=== PATIENT | male | born 1955 | race Caucasian/White ===

== ENCOUNTER → 2018-06-05 07:25 | Outpatient (CLI) | payer MEDICARE, BC ==
[~2018-06-05] VITALS: Ht 177.8 cm; Wt 136.4 kg
--- NOTE | ~2018-06-05 | OP ---
PATIENT NAME: GORDON RANKIN MEDICAL RECORD: [id number] :51 LOCATION:D.CAT ADMISSION DATE: SURGEON: LOGAN SALAS MD DATE OF OPERATION: 06/05/2018 PROCEDURES: 1. PTCA and stent, ramus intermedius. 2. PTCA and stent, LAD. 3. Left heart catheterization. 4. Selective coronary angiography. 5. Left ventriculogram. INDICATIONS: Angina and coronary artery disease. PROCEDURE IN DETAIL: After informed consent was obtained with detailed description of risks and benefits as well as alternative therapies, the patient elected to proceed with angiogram and angioplasty. The right femoral area was prepped and draped in normal sterile fashion. Right femoral artery was cannulated via modified Seldinger technique with placement of 6-American sheath. All catheters were exchanged through this sheath. FINDINGS: Left ventriculogram performed in standard 30-degree POWERS view reveals good cardiac wall motion throughout all segments. Overall ejection fraction estimated at 60%. SELECTIVE CORONARY ANGIOGRAPHY: 1. Left main is with no significant angiographic disease. 2. Left anterior descending has 80% stenosis proximally. 3. Left circumflex starts with a large ramus intermedius that has 95% stenosis. 4. Right coronary is totally occluded. Distal right coronary fills via spxr-lo-fzekx and ghfrv-ww-xqntk collaterals. PTCA AND STENT OF THE LAD AND CIRCUMFLEX RAMUS INTERMEDIUS: The ramus was addressed with a 2.75 x 12-mm Cristóbal and the LAD with a 3.0 x 34-mm [place]. Result was 0% residual stenosis. OVERALL IMPRESSION: Successful PTCA and stent of LAD and circumflex, going from 80% to 95% initial stenoses to 0% residual. TRANSINT:[id number] Voice Confirmation ID: [id number] DOCUMENT ID: [id number] LOGAN SALAS MD at 1925 CC: [id number] DICTATION DATE: 06/05/18 1045 COMMUNICATIONS ADMINISTRATOR: 06/05/18 1058 DEP CLI 06/05/18 [facility] [address] [place] [address]
--- NOTE | ~2018-06-05 | HEMODYNAMI ---
PATIENT:GORDON RANKIN MEDICAL RECORD: [id number] : 51 LOCATION:[facility] ADMISSION DATE: 06/05/18 Generatedon:06/05/201810:46 Patient name: GORDON RANKIN Patient #: [id number] SSN: DO B: 1955 Date of study: 06/05/2018 Page: Of Hemodynamic Procedure Report Patient Data Patient Demographics Procedure consent was obtained First Name: GORDON Gender: Male Last Name: CHUCHO : 1955 Patient #: [id number] Age: 63 year(s) Race: Unknown Additional ID: [id number] Contact details Address: [address] [place] [address] State: [place] City: [place] Zip code: [address] Past Medical History Allergies: No known allergies Admission Admission Data Admission Date: 06/05/2018 Admission Time: 7:25 Admit Source: Other Procedure Procedure Types Cath Procedure Diagnostic Procedure LHC LHC w/Coronaries Sedation Charges Moderate Sedation up to 15 minutes PCI Procedure Coronary Stent Coronary Stent Initial x2 Procedure Description Procedure Date Procedure Date: 06/05/2018 Procedure Start Time: 10:16 Procedure End Time: 10:45 Procedure Staff Name Function Clemente Lou MD Performing Physician Sendy Ruiz RT Scrub Mohit Woo RN Nurse Mattie Napier RT Monitor Procedure Data Cath Procedure Fluoroscopy Diagnostic fluoroscopy Total fluoroscopy Time: 8.1 time: 8.1 min min Diagnostic fluoroscopy Total fluoroscopy dose: dose: 2133 mGy 2133 mGy Contrast Material Contrast Material Type Amount (ml) Isovue 300 159 Entry Location Entry Primary Successful Side Size Upsize Upsize Entry Closure Royal ccessful Closure Location (Fr) 1 (Fr) 2 (Fr) Remarks Device Remarks Radial Right 6 Fr Mechanical artery Short Compression Femoral Right 5 Fr 6 Fr artery Short Estimated blood loss: 10 ml Diagnostic catheters Device Type Used For End Catheter Placement DIAGNOSTIC [place] 110cm 5 LV Angiography Fr catheter ([id number]) MULTIPACK Pigtail 5 Fr LV Angiography catheter MULTIPACK JL 4.0 5Fr Left Coronary catheter Angiography MULTIPACK 3DRC 5Fr Right Coronary catheter Angiography Procedure Complications No complications Procedure Medications Medication Administration Route Dosage 0.9% NaCl I.V. 100 ml/hr Oxygen etCO2 Nasal cannula 2 l/min Heparin Flush Bag added to field 2 bags (1000units/500ml NS) Lidocaine 2% added to field 20 Radial Cocktail added to field 1 syringe (Verapomil 2mg/Nitro 400mcg/Heparin 1500units) Versed I.V. 1 mg Fentanyl I.V. 50 mcg Versed I.V. 1 mg Fentanyl I.V. 50 mcg Radial Cocktail I.A. 1 syringe (Verapomil 2mg/Nitro 400mcg/Heparin 1500units) Versed I.V. 1 mg Heparin Bolus I.V. 4000 units Integrilin (Bolus I.V. 11.3 ml 2mg/ml) Integrilin (Bolus wasted 8.7 ml 2mg/ml) Plavix P.O. 600 mg Hemodynamics Rest Heart Rate: 54 (bpm) Snapshots Pre Cath Intra NCS Post Cath Vital Signs Time Heart Resp SPO2 etCO2 NIBP (mmHg) Rhythm Pain Sedation Rate (ipm) (%) (mmHg) Status Level (bpm) 9:59:22 52 13 96 37 135/73(118) NSR 0 (11) 10(A) , No pain 10:03:38 57 11 94 17.3 127/80(96) NSR 0 (11) 10(A) , No pain 10:07:56 51 12 97 12.8 124/67(96) NSR 0 (11) 10(A) , No pain 10:12:10 50 13 96 0 124/74(92) NSR 0 (11) 10(A) , No pain 10:16:20 65 13 97 25.7 140/86(118) NSR 0 (11) 10(A) , No pain 10:20:36 59 14 94 30.2 114/69(81) NSR 0 (11) 10(A) , No pain 10:24:50 52 12 96 38.5 112/68(82) NSR 0 (11) 9(A) , No pain 10:29:04 52 12 97 34.7 128/63(102) NSR 0 (11) 9(A) , No pain 10:33:18 59 13 92 33.2 120/73(94) NSR 0 (11) 9(A) , No pain 10:38:17 48 13 97 40 127/76(104) NSR 0 (11) 10(A) , No pain 10:42:31 48 12 97 38.5 124/79(103) NSR 0 (11) 10(A) , No pain Medications Time Medication Route Dose Verified Delivered Reason Not es Effectiveness by by 9:56:39 0.9% NaCl I.V. 100 Mohit Mohit Per physician ml/hr Amna Woo RN RN 9:56:51 Oxygen etCO2 2 l/min Mohit Mohit Per physician Nasal Amna Woo cannula RN RN 9:57:01 Heparin Flush added 2 bags Mohit Mohit used for Bag to Lorigan mAna procedure (1000units/500ml field RN RN NS) 9:57:14 Lidocaine 2% added 20ml Mohit Mohit for local to vial Lorigan Lorigan anesthetic RN RN 9:57:29 Radial Cocktail added 1 Mohit Mohit used for (Verapomil to syringe Lorigan Amna procedure 2mg/Nitro field RN RN 400mcg/Heparin 1500units) 10:13:20 Versed I.V. 1 mg Mohit Mohit for sedation Lorrusty Woo RN RN 10:13:28 Fentanyl I.V. 50 mcg Mohit Mohit for sedation Amna Woo RN RN 10:17:26 Versed I.V. 1 mg Mohit Mohit for sedation Amna Woo RN RN 10:17:32 Fentanyl I.V. 50 mcg Mohit Mohit for sedation Amna Woo RN RN 10:18:33 Radial Cocktail I.A. 1 Mohit Clemente for (Verapomil syringe Amna Lou MD vasodilation 2mg/Nitro RN 400mcg/Heparin 1500units) 10:18:42 Versed I.V. 1 mg Mohit Mohit for sedation Amna Woo RN RN 10:30:30 Heparin Bolus I.V. 4000 Mohit Mohit for units Lorigan Lorrusty anticoagulation RN RN 10:30:47 Integrilin I.V. 11.3 ml Mohit Mohit for (Bolus 2mg/ml) Lorrusty Woo antiplatelet RN RN therapy 10:31:05 Integrilin wasted 8.7 ml Mohit Mohit to sharp's (Bolus 2mg/ml) Lorigan Lorigan RN RN 10:42:55 Plavix P.O. 600 mg Mohit Rueda for Amna Woo antiplatelet RN RN therapy Procedure Log Time Note 9:42:56 Informed consent obtained and on chart 9:43:00 Admit Source: Other 9:43:20 Diagnostic Cath status Elective 9:43:21 Mohit Woo RN sent for patient. Start room use. 9:43:22 Time tracking: Regular hours (M-F 7:00 - 5:00) 9:43:26 Plan of Care:Hemodynamics will remain stable., Cardiac rhythm will remain stable., Comfort level will be maintained., Respiratory function will remain adequate., Patient/ family verbilizes understanding of procedure., Procedure tolerated without complication., Recovers from procedure without complications.. 9:47:46 Patient received from Pre/Post Procedure Room to CCL 2 Alert and oriented. Tansferred to table in Supine position. 9:47:47 Warm blankets applied, and ruy hugger turned on for patient comfort. 9:47:48 Correct patient and procedure confirmed by team. 9:47:48 ECG and BP/O2 sat monitors applied to patient. 9:47:50 Full Disclosure recording started 9:56:39 0.9% NaCl 100 ml/hr I.V. was administered by Mohit Woo RN; Per physician; 9:56:51 Oxygen 2 l/min etCO2 Nasal cannula was administered by Mohit Woo RN; Per physician; 9:57:01 Heparin Flush Bag (1000units/500ml NS) 2 bags added to field was administered by Mohit Woo RN; used for procedure; 9:57:14 Lidocaine 2% 20ml vial added to field was administered by Mohit Woo RN; for local anesthetic; 9:57:29 Radial Cocktail (Verapomil 2mg/Nitro 400mcg/Heparin 1500units) 1 syringe added to field was administered by Mohit Woo RN; used for procedure; 9:58:14 Vital chart was started 9:58:24 Rhythm: sinus rhythm 9:58:40 H&P Date Dictated: 06/05/2018 New H&P dictated by physician.. 9:58:41 Pre-procedure instructions explained to patient. 9:58:42 Pre-op teaching completed and patient verbalized understanding. 9:58:44 Family in patients room. 9:58:46 Patient NPO since Midnight. 9:58:52 Patient allergic to No known allergies 9:58:59 Is the patient allergic to Iodine/contrast media? No. 9:59:49 Previous problem with sedation/anesthesia? No ? 9:59:50 Snore? Yes 9:59:51 Sleep apnea? Yes 9:59:52 Deviated septum? No 9:59:52 Opens mouth fully? Yes 9:59:53 Sticks out tongue? Yes 9:59:54 Airway obstruction? No ? 9:59:56 Dentures? No ? 9:59:59 Pre procedure: right dorsailis pedis pulse 2+ Normal; easily identifiable; not easily obliterated 10:00:01 Modified Kenji's test Ulnar < 7 seconds 10:00:03 Patient pain scale 0/10 ?. 10:00:10 IV patent on arrival in left forearm with 0.9% NaCl at KVO. 10:00:13 Lab results completed and on chart. 10:00:18 Right Radial & Right Groin area was prepped with chlora-prep and draped in sterile fashion 10:00:19 Alarms reviewed by R. N. 10:00:19 Sharps counted by scrub and verified by R.N. 10:00:25 Use device set Radial Dx or PCI 10:00:26 ACIST Syringe (90560) opened to sterile field. 10:00:26 Medline Cath Pack ([id number]) opened to sterile field. 10:00:27 Bag Decanter (2002S) opened to sterile field. 10:00:27 DIAGNOSTIC WIRE .035 260cm J wire (170170) opened to sterile field. 10:00:28 ACIST Hand Control (71786) opened to sterile field. 10:00:28 ACIST Manifold (74244) opened to sterile field. 10:00:29 Tegaderm 4 x 4 (1626W) opened to sterile field. 10:00:29 MBrace Wrist Support ([id number]) opened to sterile field. 10:00:44 SHEATH 6FR Slender ([id number]) opened to sterile field. 10:04:29 Baseline sample Acquired. 10:06:40 Patient diabetic? No. 10:06:43 Is patient on blood thinner?No 10:09:30 Zero performed for pressure channel P1 10:09:55 Physician paged 10:12:49 Final Timeout: patient, procedure, and site verified with staff and physician. All members of the team are in agreement. 10:12:52 Right Radial site verified by team. 10:12:54 Physical assessment completed. ASA score P 2 - A patient with mild systemic disease as per Clemente Lou MD. 10:12:57 Sedation plan: IV Moderate Sedation Medication:Versed, Fentanyl 10:13:20 Versed 1 mg I.V. was administered by Mohit Woo RN; for sedation; 10:13:28 Fentanyl 50 mcg I.V. was administered by Mohit Woo RN; for sedation; 10:16:01 Procedure started. 10:16:38 Local anesthetic to right radial artery with Lidocaine 2% by Clemente Lou MD.INITIAL ACCESS ONLY 10:17:07 A 6 Fr Short sheath was inserted into the Right Radial artery 10:17:26 Versed 1 mg I.V. was administered by Mohit Woo RN; for sedation; 10:17:32 Fentanyl 50 mcg I.V. was administered by Mohit Woo RN; for sedation; 10:18:13 A DIAGNOSTIC [place] 110cm 5 Fr catheter (408093) was advanced over the wire and used for LV Angiography. REMOVED, UNABLE TO ADVANCE PAST SUBCLAVIAN 10:18:33 Radial Cocktail (Verapomil 2mg/Nitro 400mcg/Heparin 1500units) 1 syringe I.A. was administered by Clemente Lou MD; for vasodilation; 10:18:42 Versed 1 mg I.V. was administered by Mohit Woo RN; for sedation; 10:20:12 Local anesthetic to right femoral artery with Lidocaine 2% by Clemente Lou MD.ADDITIONAL ACCESS 10:20:23 A 5 Fr sheath was inserted into the Right Femoral artery 10:20:40 SHEATH 5FR [place] (PPX050) opened to sterile field. 10:20:48 Use device set Multipack Set 10:20:54 DIAGNOSTIC Multipack 5Fr catheter set (PM6378) opened to sterile field. 10:22:00 A MULTIPACK Pigtail 5 Fr catheter was advanced over the wire and used for LV Angiography. 10:22:17 LV gram done using POWERS 10:22:20 Injector settings: Ml/sec: 10, Volume: 20, 10:22:25 EF : 55 % 10:22:29 Catheter removed. 10:22:56 A MULTIPACK JL 4.0 5Fr catheter was advanced over the wire and used for Left Coronary Angiography. 10:25:16 Catheter removed. 10:26:12 A MULTIPACK 3DRC 5Fr catheter was advanced over the wire and used for Right Coronary Angiography. 10:26:25 Catheter removed. 10:26:41 Use device set [facility] PCI 10:26:43 SHEATH 6FR [place] (RDG142) opened to sterile field. 10:26:49 INFLATOR Merit BasixCompak (GO5082) opened to sterile field. 10:26:53 CHOICE PT Extra Support 182cm wire ([id number]) opened to sterile field. 10:28:12 GUIDE 6FR XBLAD 4.0 catheter (93669160) opened to sterile field. 10:28:53 Sheath upsized to a 6 Fr Short. 10:29:08 6 Fr XBLAD 4.0 guide catheter was inserted over the wire 10:30:01 CHOICE PT ES wire advanced. 10:30:30 Heparin Bolus 4000 units I.V. was administered by Mohit Woo RN; for anticoagulation; 10:30:47 Integrilin (Bolus 2mg/ml) 11.3 ml I.V. was administered by Mohit Woo RN; for antiplatelet therapy; 10:31:05 Integrilin (Bolus 2mg/ml) 8.7 ml wasted was administered by Mohit Woo RN; to sharp's; 10:32:41 Wire advanced across lesion. 10:34:38 Place stent Inflation Number: 1 A MARGO RX 2.75 x 12 stent ([id number]) was prepped and advanced across the Ramus. The stent was deployed at 17 NIA for 0:10 (min:sec). 10:34:55 Wire redirected to LAD. 10:35:10 Wire removed. damaged. 10:35:19 Stent catheter was removed intact over wire. 10:35:32 GRAPHIX 182cm guide wire ([id number]) opened to sterile field. 10:35:59 GRAPHIX wire advanced. 10:39:08 Place stent Inflation Number: 1 A MARGO RX 3.0 x 34 stent ([id number]) was prepped and advanced across the Mid LAD. The stent was deployed at 17 NIA for 0:02 (min:sec). 10:39:40 Inflation number: 2 The stent balloon was then re-inflated across the Mid LAD to 15 NIA for 0:06 (min:sec). 10:40:14 Stent catheter was removed intact over wire. 10:40:15 Wire removed. 10:40:15 Guide catheter removed. 10:40:26 Procedure ended.(Physican Out) 10:40:35 Fluoroscopy time 08.10 minutes. 10:40:40 Flurop Dose total: 2133 10:40:40 Fluoroscopy dose: 2133 mGy 10:40:44 Contrast amount:Isovue 300 159ml. 10:40:45 Sharps counted by scrub and verified by R.N. 10:40:47 Insertion/operative site no bleeding no hematoma. 10:40:50 Post-op/insertion site Right Femoral artery dressed using a 4 x 4 and Tegaderm. 10:41:19 Post right femoral artery:stable, clean and dry 10:41:20 Post Procedure Pulses reassessed and unchanged 10:41:24 Post-procedure physical assessment completed. ASA score P 2 - A patient with mild systemic disease as per Clemente Lou MD. 10:41:26 Post procedure rhythm: unchanged. 10:41:28 Estimated blood loss: 10 ml 10:41:29 Post procedure instruction explained to patient.Patient verbalizes understanding. 10:41:29 Patient needs reinforcement of post procedure teaching. 10:41:38 Procedure Complication : No complications 10:41:57 Procedure type changed to Cath procedure, Diagnostic procedure, LHC, LHC w/Coronaries, Sedation Charges, Moderate Sedation up to 15 minutes, PCI procedure, Coronary Stent, Coronary Stent Initial x2 10:42:30 See physician's report for complete and final results. 10:42:40 TR BAND Large (IXH86OOL) opened to sterile field. 10:42:43 EXOSEAL 6Fr (EX600) opened to sterile field. 10:42:55 Plavix 600 mg P.O. was administered by Mohit Woo RN; for antiplatelet therapy; 10:42:55 Tegaderm 4 x 4 (1626W) opened to sterile field. 10:43:08 Sheath removed intact; hemostasis achieved with Mechanical Compression to the Right Radial artery. 10:43:12 Insertion/operative site no bleeding no hematoma. 10:43:19 Post right radial artery:stable, clean and dry 10:45:34 Procedure and supply charges have been captured, reviewed, submitted and are correct. 10:45:41 Vital chart was stopped 10:45:43 Report given to Pre/Post Procedure Room. 10:45:46 Patient transfered to Pre/Post Procedure Room with Stretcher. 10:45:56 Procedure ended. 10:45:56 Full Disclosure recording stopped 10:46:00 End room use (Document Last) Intervention Summary Intervention Notes Time ActionType Lesion and Equipment Used Action# Pressure Duration Attributes 10:34:38 Place stent Ramus MARGO RX 2.75 x 1 17 00:10 12 stent ([id number]) 10:39:08 Place stent Mid LAD MARGO RX 3.0 x 1 17 00:03 34 stent ([id number]) 10:39:40 Reinflate Mid LAD MARGO RX 3.0 x 2 15 00:06 stent 34 stent balloon ([id number]) Device Usage Item Name Manufacture Quantity Catalog Number Hospital Part Current M inimal Lot# / Charge Number Stock Stock Serial# Code ACIST Syringe Acist 1 95097 476185 835728 004022 2 0 (00557) Medical Systems Inc Medline Cath Medline 1 [id number] 988003 60272 352924 5 Pack ([id number]) Bag Decanter Microtek 1 2001S 242621 46496 690477 5 (2001S) Medical Inc. DIAGNOSTIC St [place] 1 638097 605507 865654 791836 3 0 WIRE .035 260cm J wire (130152) ACIST Hand Acist 1 13938 851143 853213 666046 5 Control Medical (70168) Systems Inc ACIST Manifold Acist 1 35832 162660 686904 173677 5 (69143) Medical Systems Inc Tegaderm 4 x 4 3M 2 1626W 561156 042003 025670 5 (1626W) MBrace Wrist Advanced 1 140-0250-00 334255 42743 051158 5 Support Vascular ([id number]) Dynamics SHEATH 6FR Terumo 1 [id number] 985352 771938 149784 4 0 Slender ([id number]) DIAGNOSTIC Terumo 1 40-5740 261730 640495 844846 5 [place] 110cm 5 Fr catheter (178672) SHEATH 5FR Terumo 1 FBW771 708595 610827 087907 4 0 [place] (OLI512) DIAGNOSTIC Cardinal 1 AT8859 440320 70155 161391 3 0 Multipack 5Fr Health catheter set (VE3693) MULTIPACK Cardinal 1 724303 5 Pigtail 5 Fr Health catheter MULTIPACK JL Cardinal 1 821437 5 4.0 5Fr Health catheter MULTIPACK 3DRC Cardinal 1 120221 5 5Fr catheter Health SHEATH 6FR Terumo 1 MJD651 462864 813247 273352 4 0 [place] (PAO392) INFLATOR Merit Merit 1 TK6450 454677 799506 479516 1 5 BioTime (BK5292) CHOICE PT [place] 1 [id number] 743023 888907 010532 5 Extra Support Scientific 182cm wire (2305095X3) GUIDE 6FR Cardinal 1 24573637 917223 245022 142905 3 XBLAD 4.0 Health catheter (78747035) MARGO RX 2.75 x Medtronic 1 [id number] 697178 8284082 640640 5 [id number] 12 stent ([id number]) GRAPHIX 182cm [place] 1 [id number] 695262 073896 974314 5 guide wire Scientific ([id number]) MARGO RX 3.0 x Medtronic 1 [id number] 982853 1690715 807360 5 [id number] 34 stent ([id number]) TR BAND Large Terumo 1 [id number] 766516 895730 349485 4 0 ([id number]) EXOSEAL 6Fr Cardinal 1 EX600 841954 979418 441791 1 0 (EX600) Health Signature Audit [place] Stage Time Signature Unsigned Intra-Procedure 06/05/2018 Mattie 10:46:32 AM Counts RT(R) Signatures Monitor : Mattie Signature : Counts RT Date : Time : [facility] [address] [place] [address]
--- NOTE | ~2018-06-05 | HP ---
PATIENT: GORDON RANKIN MEDICAL RECORD: [id number] ACCOUNT: [id number] LOCATION:[place] : 51 ADMISSION DATE: 06/05/18 PCP: KAMRAN DODSON HISTORY AND PHYSICAL EXAMINATION DIAGNOSES: 1. Angina. 2. Coronary artery disease. 3. Abnormal nuclear stress test, reversible ischemia inferiorly and laterally. 4. Hypertension. 5. Hyperlipidemia. HISTORY: Mr. Rankin presents with anginal symptomatology, found to have significantly abnormal nuclear stress test, now brought for cardiac catheterization. PHYSICAL EXAMINATION: GENERAL APPEARANCE: Well-nourished, well-developed, appears stated age. Level of distress, comfortable. PSYCHIATRIC: Mental status, alert, normal affect. Orientation, oriented to time, place and person. EYES: Lids and conjunctiva, noninjected. No discharge, no pallor. ENT: Lips, teeth, gums, normal dentition. Oropharynx, no cyanosis, no pallor. NECK: Carotid arteries, bilateral normal upstroke, no bruits, no thrills. JUGULAR VEINS: No jugular venous pressure or distention. CERVICAL LYMPH NODES: Nontender, nonenlarged. THYROID: Not enlarged. Nontender. No nodules. LUNGS: Respiratory effort, unlabored. CHEST: Normal curvature. No thoracic deformity. No chest wall tenderness. Percussion, resonant. Auscultation, clear. No wheezes, no rales, no rhonchi. CARDIOVASCULAR: Precordial exam, nondisplaced. No heaves or pericardial thrills. Rate and rhythm, regular. Heart sounds, normal S1, normal S2. No S3, no gallop, no rub. Systolic murmur, not heard. Diastolic murmur, not heard. EXTREMITIES: No cyanosis, no edema. Peripheral pulses, full and equal in all extremities, except as noted. No bruits appreciated. ABDOMEN: Soft, nondistended. Normal aorta. No bruit. Nontender. No masses. Liver, nontender, no hepatomegaly. Spleen, nontender, no splenomegaly. MUSCULOSKELETAL: No joint tenderness. No joint swelling. No erythema. NEUROLOGICAL: Normal gait, normal strength, normal tone. SKIN: Warm and dry. OVERALL IMPRESSION: Anginal symptomatology, most likely hemodynamically significant coronary artery disease. We will proceed with coronary angiography. Further care depends upon findings of the angiography. TRANSINT:[id number] Voice Confirmation ID: [id number] DOCUMENT ID: [id number] HISTORY AND PHYSICAL [id number] GORDON RANKIN JEFFREY MD at 1925 CC: [id number] DICTATION DATE: 06/05/18 1043 CLINICAL LABORATORY AIDE: 06/05/18 1050 DEP CLI 06/05/18 [facility] [address] [place] [id number]
[~2018-06-05 07:25] MED LIST: BAYER CHEWABLE81 MG PO; BUMEX2 MG PO; CINNAMON500 MG PO; HYDROCHLOROTHIA25 MG PO; LIPITOR10 MG PO; MULTI-DAY VITAM1 TAB PO; OMEGA-3100 MG PO; PLAVIX75 MG PO; SYNTHROID50 MCG PO; VASOTEC5 MG PO; VITAMIN B650 MG PO; VITAMIN D5000 UNIT PO; ZYLOPRIM300 MG PO
[2018-06-05 08:06] VITALS: BP 129/75; Ht 177.8 cm; Wt 136.4 kg
[2018-06-05 08:32] LABS: ANION GAP 10.2 mmol/L (8-16); CALCIUM 8.8 mg/dL (8.5-10.1); CARBON DIOXIDE 29.4 mmol/L (21.0-32.0); CREATININE - SERUM 1.3 mg/dL (0.6-1.3); POTASSIUM - SERUM 3.6 mmol/L (3.5-5.1)
[2018-06-05 08:49] LABS: BASOPHILS 0.5 % (0-2); EOSINOPHILS 1.3 % (0-7); HEMATOCRIT 40.6 % (42.0-54.0); HEMOGLOBIN 13.8 g/dL (13.5-17.5); IMMATURE GRANULOCYTES 0.1 % (0-5); MCH 31.9 pg (26.0-34.0); MCV 93.8 fL (80.0-100.0); MEAN PLATELET VOLUME 10.5 fL (7.4-10.4); MONOCYTES 7.8 % (2-11); NEUTROPHILS 43.3 % (40-80); PLATELET COUNT 150 10x3/uL (130-400); RBC 4.33 10x6/uL (4.20-6.10); RDW 13.7 % (11.5-14.5)
== END | disposition home or self-care (01) ==
LOC: D.CATH 07:25
PROVIDERS: Internal Medicine Interventional Cardiology
DX: I25.119 Atherosclerotic heart disease of native coronary artery with unspecified angina pectoris (principal); I10 Essential (primary) hypertension; E78.5 Hyperlipidemia, unspecified; R94.30 Abnormal result of cardiovascular function study, unspecified
CPT/HCPCS: 93458; C9600 ×2